=== PATIENT | female | born 1985 | race Caucasian/White ===

== ENCOUNTER 2019-05-06 07:01 | Inpatient (IN) | payer OTHER, MEDICAID ==
[~2019-05-06 07:01] MED LIST: Bupivacaine 0.25% 10 ML SDV ONE
--- NOTE | 2019-05-06 07:25 | PCM.LDHP ---
L&D History of Present Illness - General Date of Service: 05/06/19 Admit Problem/Dx: Admission Diagnosis/Problem Admission Diagnosis/Problem 05/06/19 07:04 Pat is a 33-year-old 1 para 0 white female who is admitted at 39-5/7 weeks gestational age with an CHRIS of 05/08/2019 for elective induction of labor. Risk factors include group B strep positive status and history of alpha thalassemia minor. Source of Information: Patient History Limitations: Reports: No Limitations - History of Present Illness Introduction:: Pat is a 33-year-old 1 para 0 white female who is admitted at 39-5/7 weeks gestational age with an CHRIS of 05/08/2019 for elective induction of labor. Risk factors include group B strep positive status and history of alpha thalassemia minor.Patient requesting induction prior to her due date and is scheduled for elective induction. Cervical exam on last evaluation 05/01/2019 was 2 cm, 80% effaced, soft, mid position, -3 station. I discussed with her the option of induction of labor versus continued monitoring for natural labor. She is interested in proceeding. Have talked with her about possibility of Pitocin/ artificial rupture of membranes induction. She is wishing to proceed. [employer] history: Patient is a 1 para 0 with an CHRIS of 05/08/2019 as determined by a certain laststart 08/01/2018 and supported by ultrasounds done on 10/24/2018 end 12/19/2018. Patient had menarche at age 13. Cycles every 30-33 days. Positive hCG was on 09/04/2018. She has monthly cycles and was not using any control to conception. LMP was definite starting 08/01/2018. course: Patient is group B strep positive. She has helped with thalassemia minor. Her care started with an early ultrasound done on 10/24/2018 at 12 weeks gestation. She seen on a regular basis and was a centering patient. Weight gain was from 177 pounds up to 217 pounds [place] 40 pound weight gain. Her vital signs stable throughout the care. Fundal height growth has been appropriate. Estimated weight is approximately 8 pounds. She is desiring an epidural in labor. Her CBC indices have been irregular secondary to her alpha thalassemia minor. Patient had her influenza shot on 11/26/2018. Her T dap was given on 02/27/2019. She is rubella immune. Laboratory testing and shows blood to be a positive with a negative and by screen. Hemoglobin at first visit was 11.5 g/dL and platelets are 411. She is rubella immune. RPR is nonreactive area hepatitis B surface antigen and HIV assays were both negative. Chlamydia and gonorrhea both negative. Second trimester labs showed hemoglobin 10.2 g/dL and platelets at 381,000. Her 1 hour GTT was normal at 107. Hemoglobin at 36 weeks on 04/17/2019 was 11.4 g/dL platelets were 343,000. She is group B strep positive. She develops a rash when taking penicillin. The group B strep has been cultured and is found to be sensitive to clindamycin. Allergies: 1. Penicillin which causes a rash 2. Biaxin which causes a rash Past medical history: 1. Alpha thalassemia minor Past surgical history 1. [place] teeth extraction Family history: Others alive. Has history of thalassemia, high blood pressure, multiple hip replacement surgeries, bilateral knee replacement surgeries. Father is alive and well. One brother is alive and well. Maternal grandmother is alive and well. Maternal grandfather secondary in secondary to an aneurysm in 2002. Maternal paternal grandmother is alive and well. Paternal grandfather is , cause unknown. No family history of cancer, bleeding or blood clotting problems, anesthesia related issues or -related issues. Social history: Patient is . She works in [employer] at [email or web address]. She is a college graduate. Her is Kendall Reza. They live in [place]. She does not use any significant most alcohol, drugs or tobacco. Review of systems: In general patient has no complaints. Baby has been active. Occasional contractions noted. Skin: Negative Lungs: No infectious symptoms or shortness of breath Cardiovascular: No chest pain or exercise intolerance Breasts: Changes associated with . GI: Negative : Body habitus changes related to . Musculoskeletal: Negative Neurological: Negative In general the patient is well-developed, well-nourished, pleasant female of stated age in no acute distress. On last evaluation 05/01/2019 blood pressure is 127/72. Weight was 217.4 with pre weight at 177 pounds. Height is 5 feet 4 inches. Prepregnancy BMI was 28.3. Skin is warm dry without lesions. HEENT, neck and back within normal limits. Lungs are clear with good breath sounds in all lung gardner. Cardiovascular exam shows regular and rhythm without murmurs. Breast exam is deferred Abdomen is gravid with fundal height of 40 cm. Baby in vertex presentation by Lee maneuvers. Genital exam per digital evaluation shows cervix to be 2 cm, 80% effaced, soft, mid position, -3 station. Extremities and neurological exam are grossly within normal limits. H&P Review of Systems - Review of Systems: Review Of Systems: See Below L&D Exam - Exam Exam: See Below Problem List Initiated/Reviewed/Updated: Yes Assessment/Plan Comment:: 1. 33-year-old 1 para 0 white female admitted at 39-5/7 weeks gestational age with an CHRIS of 05/08/2019 for elective induction of labor. 2. Risk factors for the include history of Alpha thalassemia minor and group B strep positive status. Patient is allergic to penicillin but group B strep has been found to be sensitive to clindamycin which will be used for B strep prophylaxis. 3. Patient desires epidural in labor and delivery 4. Patient received her T dap her flu immunization. She is rubella immune. Plan: 1. Group B strep prophylaxis with clindamycin 2. Induction of labor. Last evaluation have discussed Pitocin/artificial rupture membranes induction. She is accepting of this. 3. Epidural when necessary 4. Routine labor care 5. CBC and RPR on admission.
[2019-05-06] MEDS ORDERED: Bupivacaine/fentaNYL/NS 100 ML Bag EPIDUR PRN (07:45)
[2019-05-06] MEDS ORDERED: ePHEDrine 50 MG/ML SDV IVPUSH PRN (07:45)
[2019-05-06] MEDS ORDERED: diphenhydrAMINE 50 MG/ML SDV IVPUSH PRN (07:45)
[2019-05-06] MEDS ORDERED: fentaNYL 100 MCG/2 ML SDV EPIDUR PRN (07:45)
[2019-05-06] MEDS ORDERED: Acetaminophen 325 MG Tab PO PRN (08:08)
[2019-05-06] MEDS ORDERED: Sodium Chloride 0.9% 10 ML Syringe FLUSH PRN (08:08)
[2019-05-06] MEDS ORDERED: Oxytocin/Lactated Ringers 10 UNIT/1,000 ML BAG IV SCH ×2 (08:15)
[2019-05-06] MEDS ORDERED: Lactated Ringers 1,000 ML IV SCH (08:15)
[2019-05-06] MEDS: Lactated Ringers 1,000 ML IV SCH ×3 (08:40→15:04)
[2019-05-06] MEDS: Clindamycin Phosphate in D5W 900 MG in Premix Bag 1 BAG IV SCH ×4 (08:40→16:24)
--- NOTE | 2019-05-06 08:54 | PCM.PNLD ---
Labor Progress Note - VS & Meds Vital Signs: Last Vital Signs Temp 36.4 C 05/06/19 07:27 Pulse 95 05/06/19 07:27 Resp 16 05/06/19 07:27 BP 123/86 05/06/19 07:27 Pulse Ox 99 05/06/19 07:27 Active Medications: Current Medications Acetaminophen (Tylenol) 650 mg PO Q6H PRN PRN Reason: Pain (Mild 1-3) and fever Diphenhydramine HCl (Benadryl) 25 mg IVPUSH Q6H PRN PRN Reason: Itching Ephedrine Sulfate (Ephedrine Sulfate) 5 mg IVPUSH ASDIRECTED PRN PRN Reason: HYPOTENTSION Fentanyl (Sublimaze) 100 mcg EPIDUR Q3H PRN PRN Reason: Pain Fentanyl/Bupivacaine HCl (Fentanyl/Bupivacaine/Ns 2 Mcg-0.125% 100 Ml) 100 ml EPIDUR CONTINUOUS PRN PRN Reason: Pain Lactated Ringer's (Ringers, Lactated) 1,000 mls @ 100 mls/hr IV ASDIRECTED LICHA Lactated Ringer's (Ringers, Lactated) 1,000 mls @ 40 mls/hr IV ASDIRECTED LICHA Last Admin: 05/06/19 08:40 Dose: 40 mls/hr Oxytocin/Lactated Ringer's (Pitocin In Lr 10 Units/1,000 Ml) 10 unit in 1,000 mls @ 100 mls/hr IV .CONTINUOUS LICHA Oxytocin/Lactated Ringer's (Pitocin In Lr 10 Units/1,000 Ml) 10 unit in 1,000 mls @ 12 mls/hr IV TITRATE LICHA; Protocol Last Admin: 05/06/19 08:41 Dose: 2 munits/min, 12 mls/hr Clindamycin Phosphate 900 mg/ (Premix) 50 mls @ 94.34 mls/hr IV Q8H LICHA Last Admin: 05/06/19 08:40 Dose: 94.34 mls/hr Sodium Chloride (Saline Flush) 10 ml FLUSH ASDIRECTED PRN PRN Reason: Keep Vein Open - Uterine Contractions Uterine Monitoring Mode: External [place] Contraction Frequency (min): Irregular 12-15 min Contraction Duration (sec): 45-60 Contraction Intensity: Mild Uterine Resting Tone: Soft - Monitoring Monitor Mode: Doppler/Auscultation Heart Rate (FHR) Baseline: 130 Heart Rate (FHR) Per Doppler: 130 Heart Rate (FHR) Variability: Moderate (6-25 bmp) Accelerations: Present, 15x15 Decelerations: None Strip Review: Category I - Vaginal Exam Dilation (cm): 1 Effacement (Percent): 50 Station: -4 Cervical Position: Posterior Sterile Vaginal Exam Performed By: Venkatesh Almanza Vaginal Exam Comment: Transcervical 16 [place] Crocker bulb placed with ring forceps under direct visualization with speculum. Crocker bulb filled with 50 mL of sterile saline. Mother and infant tolerated without difficulty. - Labor Progress (Free Text) Labor Progress: Start clindamycin 900 mg IV for GBS prophylaxis Routine vitals Continuous monitoring while on pitocin Regular diet Pitocin for induction Anticipate vaginal delivery unless otherwise indicated. Venkatesh Almanza MD 8:58 AM 05/06/2019
--- NOTE | 2019-05-06 12:36 | PCM.PNLD ---
Labor Progress Note - VS & Meds Vital Signs: Last Vital Signs Temp 36.4 C 05/06/19 07:27 Pulse 95 05/06/19 07:27 Resp 16 05/06/19 07:27 BP 123/86 05/06/19 07:27 Pulse Ox 99 05/06/19 07:27 Active Medications: Current Medications Acetaminophen (Tylenol) 650 mg PO Q6H PRN PRN Reason: Pain (Mild 1-3) and fever Diphenhydramine HCl (Benadryl) 25 mg IVPUSH Q6H PRN PRN Reason: Itching Ephedrine Sulfate (Ephedrine Sulfate) 5 mg IVPUSH ASDIRECTED PRN PRN Reason: HYPOTENTSION Fentanyl (Sublimaze) 100 mcg EPIDUR Q3H PRN PRN Reason: Pain Fentanyl/Bupivacaine HCl (Fentanyl/Bupivacaine/Ns 2 Mcg-0.125% 100 Ml) 100 ml EPIDUR CONTINUOUS PRN PRN Reason: Pain Lactated Ringer's (Ringers, Lactated) 1,000 mls @ 100 mls/hr IV ASDIRECTED LICHA Lactated Ringer's (Ringers, Lactated) 1,000 mls @ 40 mls/hr IV ASDIRECTED LICHA Last Admin: 05/06/19 08:40 Dose: 40 mls/hr Oxytocin/Lactated Ringer's (Pitocin In Lr 10 Units/1,000 Ml) 10 unit in 1,000 mls @ 100 mls/hr IV .CONTINUOUS LICHA Oxytocin/Lactated Ringer's (Pitocin In Lr 10 Units/1,000 Ml) 10 unit in 1,000 mls @ 12 mls/hr IV TITRATE LICHA; Protocol Last Titration: 05/06/19 11:56 Dose: 8 munits/min, 48 mls/hr Clindamycin Phosphate 900 mg/ (Premix) 50 mls @ 94.34 mls/hr IV Q8H LICHA Last Admin: 05/06/19 08:40 Dose: 94.34 mls/hr Sodium Chloride (Saline Flush) 10 ml FLUSH ASDIRECTED PRN PRN Reason: Keep Vein Open - Uterine Contractions Uterine Monitoring Mode: External [place] Contraction Frequency (min): 2-4 Contraction Duration (sec): 60-75 Contraction Intensity: Moderate Uterine Resting Tone: Soft - Monitoring Monitor Mode: Doppler/Auscultation Heart Rate (FHR) Baseline: 125 Heart Rate (FHR) Per Doppler: 125 Heart Rate (FHR) Variability: Moderate (6-25 bmp) Accelerations: Present, 15x15 Decelerations: None Strip Review: Category I - Vaginal Exam Dilation (cm): 5 Effacement (Percent): 80 Station: -3 Cervical Position: Anterior Sterile Vaginal Exam Performed By: Venkatesh Almanza Vaginal Exam Comment: Artificial rupture membranes performed with [place] with return of clear fluid. Small amount of blood clot was present on cervical exam prior to rupture of membranes. - Labor Progress (Free Text) Labor Progress: Patient continued to progress well with Crocker bulb coming out spontaneously at approximately 10:30 AM Continue Pitocin for induction of labor Continue clindamycin 900 mg IV every 8 hours for GBS prophylaxis Routine vitals Patient may have anesthesia such as epidural as desired Continuous monitoring Small amounts of regular diet as tolerated Anticipate vaginal delivery unless otherwise indicated Venkatesh Almanza MD 12:35 PM 05/06/2019
--- NOTE | 2019-05-06 14:22 | PCM.PREANE ---
Preanesthetic Assessment - Procedure Proposed Procedure: epidural - Anesthesia/Transfusion/Family Hx Anesthesia History: Prior Anesthesia Without Reaction Family History of Anesthesia Reaction: No Transfusion History: No Prior Transfusion(s) - Review of Systems General: Fatigue Pulmonary: No Symptoms Cardiovascular: No Symptoms Gastrointestinal: Abdominal Pain (labor) Neurological: Tingling (bilateral hands) Other: Reports: None - Physical Assessment Vital Signs: Last Vital Signs Temp 36.4 C 05/06/19 07:27 Pulse 95 05/06/19 07:27 Resp 16 05/06/19 07:27 BP 123/86 05/06/19 07:27 Pulse Ox 99 05/06/19 07:27 Height: 1.63 m Weight: 98.566 kg ASA Class: 2 Mental Status: Alert & Oriented x3 Airway Class: Mallampati = 2 Dentition: Reports: Normal Dentition Thyro-Mental Finger Breadths: 3 Mouth Opening Finger Breadths: 3 ROM/Head Extension: Full Lungs: Clear to Auscultation, Normal Respiratory Effort Cardiovascular: Regular Rate, Regular Rhythm - Lab Values: Laboratory Last Values WBC 12.57 K/mm3 (3.98-10.04) H 05/06/19 08:52 RBC 4.93 M/mm3 (3.98-5.22) 05/06/19 08:52 Hgb 10.8 gm/dl (11.2-15.7) L 05/06/19 08:52 Hct 32.6 % (34.1-44.9) L 05/06/19 08:52 MCV 66.1 fl (79.4-94.8) L 05/06/19 08:52 MCH 21.9 pg (25.6-32.2) L 05/06/19 08:52 MCHC 33.1 g/dl (32.2-35.5) 05/06/19 08:52 RDW Std Deviation 36.9 fL (36.4-46.3) 05/06/19 08:52 Plt Count 281 K/mm3 (182-369) 05/06/19 08:52 MPV 11.2 fl (9.4-12.3) 05/06/19 08:52 Neut % (Auto) 72.7 % (34.0-71.1) H 05/06/19 08:52 Lymph % (Auto) 17.1 % (19.3-51.7) L 05/06/19 08:52 [place] % (Auto) 7.2 % (4.7-12.5) 05/06/19 08:52 Eos % (Auto) 1.0 (0.7-5.8) 05/06/19 08:52 Baso % (Auto) 0.4 % (0.1-1.2) 05/06/19 08:52 Neut # (Auto) 9.14 K/mm3 (1.56-6.13) H 05/06/19 08:52 Lymph # (Auto) 2.15 K/mm3 (1.18-3.74) 05/06/19 08:52 [place] # (Auto) 0.91 K/mm3 (0.24-0.36) H 05/06/19 08:52 Eos # (Auto) 0.12 K/mm3 (0.04-0.36) 05/06/19 08:52 Baso # (Auto) 0.05 K/mm3 (0.01-0.08) 05/06/19 08:52 - Allergies Allergies/Adverse Reactions: Allergies Allergy/AdvReac Type Severity Reaction Status Date / Time clarithromycin [From Biaxin] Allergy Rash Verified 05/06/19 07:28 Penicillins Allergy Rash Verified 05/06/19 07:28 - Anesthesia Plan Pre-Op Medication Ordered: None - Acknowledgements Anesthesia Type Planned: Epidural Pt an Appropriate Candidate for the Planned Anesthesia: Yes Alternatives and Risks of Anesthesia Discussed w Pt/Guardian: Yes Pt/Guardian Understands and Agrees with Anesthesia Plan: Yes PreAnesthesia Questionnaire Gastrointestinal History: Reports: GERD 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: Reports: Hematologic History: Reports: Anemia, Other (See Below) Other Hematologic History: Thalassemia - Past Surgical History HEENT Surgical History: Reports: Oral Surgery - SUBSTANCE USE Smoking Status *Q: Never Smoker Recreational Drug Use History: No - HOME MEDS Home Medications: Home Meds Cholecalciferol (Vitamin D3) [Vitamin D3] 2,000 unit PO DAILY 05/06/19 [History] Ferrous Sulfate [Iron] 325 mg PO DAILY 05/06/19 [History] No122/Iron/Folic Acid [ Multi Tablet] 1 each PO DAILY 05/06/19 [History] - CURRENT (IN HOUSE) MEDS Current Meds: Current Medications Acetaminophen (Tylenol) 650 mg PO Q6H PRN PRN Reason: Pain (Mild 1-3) and fever Diphenhydramine HCl (Benadryl) 25 mg IVPUSH Q6H PRN PRN Reason: Itching Ephedrine Sulfate (Ephedrine Sulfate) 5 mg IVPUSH ASDIRECTED PRN PRN Reason: HYPOTENTSION Fentanyl (Sublimaze) 100 mcg EPIDUR Q3H PRN PRN Reason: Pain Last Admin: 05/06/19 13:52 Dose: 100 mcg Fentanyl/Bupivacaine HCl (Fentanyl/Bupivacaine/Ns 2 Mcg-0.125% 100 Ml) 100 ml EPIDUR CONTINUOUS PRN PRN Reason: Pain Last Admin: 05/06/19 13:52 Dose: 100 ml Lactated Ringer's (Ringers, Lactated) 1,000 mls @ 100 mls/hr IV ASDIRECTED LICHA Lactated Ringer's (Ringers, Lactated) 1,000 mls @ 40 mls/hr IV ASDIRECTED LICHA Last Admin: 05/06/19 13:42 Dose: 999 mls/hr Oxytocin/Lactated Ringer's (Pitocin In Lr 10 Units/1,000 Ml) 10 unit in 1,000 mls @ 100 mls/hr IV .CONTINUOUS LICHA Oxytocin/Lactated Ringer's (Pitocin In Lr 10 Units/1,000 Ml) 10 unit in 1,000 mls @ 12 mls/hr IV TITRATE LICHA; Protocol Last Titration: 05/06/19 11:56 Dose: 8 munits/min, 48 mls/hr Clindamycin Phosphate 900 mg/ (Premix) 50 mls @ 94.34 mls/hr IV Q8H LICHA Last Admin: 05/06/19 08:40 Dose: 94.34 mls/hr Sodium Chloride (Saline Flush) 10 ml FLUSH ASDIRECTED PRN PRN Reason: Keep Vein Open
--- NOTE | 2019-05-06 20:33 | PCM.PNLD ---
Labor Progress Note - VS & Meds Vital Signs: Last Vital Signs Temp 36.4 C 05/06/19 07:27 Pulse 95 05/06/19 07:27 Resp 16 05/06/19 07:27 BP 123/86 05/06/19 07:27 Pulse Ox 99 05/06/19 07:27 Active Medications: Current Medications Acetaminophen (Tylenol) 650 mg PO Q6H PRN PRN Reason: Pain (Mild 1-3) and fever Diphenhydramine HCl (Benadryl) 25 mg IVPUSH Q6H PRN PRN Reason: Itching Ephedrine Sulfate (Ephedrine Sulfate) 5 mg IVPUSH ASDIRECTED PRN PRN Reason: HYPOTENTSION Fentanyl (Sublimaze) 100 mcg EPIDUR Q3H PRN PRN Reason: Pain Last Admin: 05/06/19 13:52 Dose: 100 mcg Fentanyl/Bupivacaine HCl (Fentanyl/Bupivacaine/Ns 2 Mcg-0.125% 100 Ml) 100 ml EPIDUR CONTINUOUS PRN PRN Reason: Pain Last Admin: 05/06/19 13:52 Dose: 100 ml Lactated Ringer's (Ringers, Lactated) 1,000 mls @ 100 mls/hr IV ASDIRECTED LICHA Lactated Ringer's (Ringers, Lactated) 1,000 mls @ 40 mls/hr IV ASDIRECTED LICHA Last Admin: 05/06/19 15:04 Dose: 40 mls/hr Oxytocin/Lactated Ringer's (Pitocin In Lr 10 Units/1,000 Ml) 10 unit in 1,000 mls @ 100 mls/hr IV .CONTINUOUS LICHA Oxytocin/Lactated Ringer's (Pitocin In Lr 10 Units/1,000 Ml) 10 unit in 1,000 mls @ 12 mls/hr IV TITRATE LICHA; Protocol Last Titration: 05/06/19 17:15 Dose: 16 munits/min, 96 mls/hr Clindamycin Phosphate 900 mg/ (Premix) 50 mls @ 94.34 mls/hr IV Q8H LICHA Last Admin: 05/06/19 16:24 Dose: 94.34 mls/hr Sodium Chloride (Saline Flush) 10 ml FLUSH ASDIRECTED PRN PRN Reason: Keep Vein Open - Uterine Contractions Uterine Monitoring Mode: External [place] Contraction Frequency (min): 2-4 Contraction Duration (sec): 45-60 Contraction Intensity: Moderate Uterine Resting Tone: Soft - Monitoring Monitor Mode: Doppler/Auscultation Heart Rate (FHR) Baseline: 140 Heart Rate (FHR) Per Doppler: 140 Heart Rate (FHR) Variability: Moderate (6-25 bmp) Accelerations: Present, 15x15 Decelerations: None Strip Review: Category I - Vaginal Exam Dilation (cm): 8 Effacement (Percent): 100 Station: -2 Cervical Position: Anterior Sterile Vaginal Exam Performed By: Venkatesh Almanza Vaginal Exam Comment: Intrauterine pressure catheter placed without difficulty after patient making slow progress. Mother and infant tolerated well. - Labor Progress (Free Text) Labor Progress: Patient with slow progress since approximately 1500 when she was 6-7 cm by nurses and is approximately 8 cm at current exam. IUPC placed to monitor contractions more closely and to adjust Pitocin for induction of labor. Continue Pitocin for induction of labor Continue clindamycin 900 mg IV every 8 hours for GBS prophylaxis Routine vitals Patient may have anesthesia such as epidural as desired Continuous monitoring Small amounts of regular diet as tolerated Anticipate vaginal delivery unless otherwise indicated Venkatesh Almanza MD 8:35 PM 05/06/2019
--- NOTE | 2019-05-07 00:27 | PCM.DEL ---
L & D Note - General Info Date of Service: 05/06/19 Mother's Due Date: 05/08/19 - Delivery Note Labor: Augmented by ARM, Induced by Oxytocin Cervical Ripening Method: Balloon Device (Crocker bulb filled with 50 mL of sterile saline, placed with speculum and ring forceps), Oxytocin Delivery Outcome: Livebirth Infant Delivery Method: Spontaneous Vaginal Delivery-Single Presentation: Right Occiput Anterior (ALICIA) Nuchal Cord: None Prep: Povidone-Iodine (Betadine Anesthesia Type: Epidural Amniotic Fluid Description: Clear Episiotomy Type: None Laceration: 3rd Degree (partial, repaired with interrupted figure of 8 sutures with 2-0 Vicryl Rapide, remainder of repair with 3-0 Vicryl) Placenta: Intact, Spontaneous Cord: 3 Vessels Estimated Blood Loss: 400 Resuscitation Needed: No : Bulb Syringe, Cathether, Stimulated, Warmed, [place] Used Provider: Venkatesh Almanza Score 1 min: 9 Score 5 min: 9 Second Stage Interventions: Reports: Pushing Effectively, Pushing, Stirrups/Leg Supports Delivery Comments (Free Text/Narrative):: Stage I: Pat Reza was admitted for elective induction of labor. On admission her cervix was dilated to 1 cm. She was GBS positive and has a history of allergy to penicillin. She was started on clindamycin for GBS prophylaxis and received a total of 2 doses prior to delivery. She was started on Pitocin for induction of labor. She had a transcervical Crocker bulb placed with ring forceps and the use of a speculum. The Crocker bulb was filled with 50 mL of sterile saline. The Crocker bulb came out spontaneously and she had artificial rupture of membranes with return of clear fluid. She was given an epidural for anesthesia. She was making slow progress throughout the evening from 6 to 8 cm and an intrauterine pressure catheter was placed without difficulty. She progressed to complete and pushing. Stage II: On 05/06/2019 she had a normal vaginal delivery of a live male infant at 23:30. Apgars of 9 & 9. Weight of 3690 g (8 lbs 2.2 oz). Length of 21.5 inches. There was no nuchal cord. Infant was delivered in ALICIA position. The cord was doubly clamped and cut by father of the . was placed on mother's abdomen. Stage III: She had a spontaneous delivery of an intact placenta in Natalia presentation. Three vessel cord. She was given pitocin and fundal massage. She had a partial third-degree laceration with the external capsule partially torn. This partial tear of the external anal sphincter muscle capsule was repaired with 2 [id number] sutures using 2-0 Vicryl Rapide. The remainder of the repair was performed in usual fashion using 3-0 Vicryl. Mom and baby were stable to recovery. EBL of 400 mL. Venkatesh Almanza MD 12:20 AM 05/07/2019 Induction Criteria - Cabrales Score Cabrales Score Dilation: 1-2 cm Cabrales Score Effacement: 60-70% Cabrales Score Infant's Station: -3 Cabrales Score Consistency: Soft Cabrales Score Cervix Position: Midposition Cabrales Score Total: 6 Cabrales Score Presenting Part: Reports: Cephalic - Induction Gestational Age >/= 39 wks: Yes Estimated Pelvis: Reports: Adequate Reassuring Monitoring Strip: Yes Absence of Tachy Systole: Yes - Augmentation Estimated Pelvis: Reports: Adequate Weight Estimated:: Reports: AGA Reassuring Monitoring Strip: Yes Absence of Tachy Systole: Yes - General Info Date of Service: 05/06/19 - Patient Data Vitals - Most Recent: Last Vital Signs Temp 36.4 C 05/06/19 07:27 Pulse 95 05/06/19 07:27 Resp 16 05/06/19 07:27 BP 123/86 05/06/19 07:27 Pulse Ox 99 05/06/19 07:27 Weight - Most Recent: 98.566 kg I&O - Last 24 Hours: Intake & Output 05/06/19 05/06/19 05/07/19 14:59 22:59 06:59 Intake Total 2100 Balance 2100 Lab Results Last 24 Hours: Laboratory Results - last 24 hr 05/06/19 05/06/19 Range/Units 08:52 08:52 WBC 12.57 H (3.98-10.04) K/mm3 RBC 4.93 (3.98-5.22) M/mm3 Hgb 10.8 L (11.2-15.7) gm/dl Hct 32.6 L (34.1-44.9) % MCV 66.1 L (79.4-94.8) fl MCH 21.9 L (25.6-32.2) pg MCHC 33.1 (32.2-35.5) g/dl RDW Std Deviation 36.9 (36.4-46.3) fL Plt Count 281 (182-369) K/mm3 MPV 11.2 (9.4-12.3) fl Neut % (Auto) 72.7 H (34.0-71.1) % Lymph % (Auto) 17.1 L (19.3-51.7) % [place] % (Auto) 7.2 (4.7-12.5) % Eos % (Auto) 1.0 (0.7-5.8) Baso % (Auto) 0.4 (0.1-1.2) % Neut # (Auto) 9.14 H (1.56-6.13) K/mm3 Lymph # (Auto) 2.15 (1.18-3.74) K/mm3 [place] # (Auto) 0.91 H (0.24-0.36) K/mm3 Eos # (Auto) 0.12 (0.04-0.36) K/mm3 Baso # (Auto) 0.05 (0.01-0.08) K/mm3 RPR Non-reactive (NONREACTIVE) Med Orders - Current: Current Medications Acetaminophen (Tylenol) 650 mg PO Q6H PRN PRN Reason: Pain (Mild 1-3) and fever Diphenhydramine HCl (Benadryl) 25 mg IVPUSH Q6H PRN PRN Reason: Itching Ephedrine Sulfate (Ephedrine Sulfate) 5 mg IVPUSH ASDIRECTED PRN PRN Reason: HYPOTENTSION Fentanyl (Sublimaze) 100 mcg EPIDUR Q3H PRN PRN Reason: Pain Last Admin: 05/06/19 13:52 Dose: 100 mcg Fentanyl/Bupivacaine HCl (Fentanyl/Bupivacaine/Ns 2 Mcg-0.125% 100 Ml) 100 ml EPIDUR CONTINUOUS PRN PRN Reason: Pain Last Admin: 05/06/19 13:52 Dose: 100 ml Lactated Ringer's (Ringers, Lactated) 1,000 mls @ 100 mls/hr IV ASDIRECTED LICHA Last Admin: 05/06/19 21:48 Dose: 100 mls/hr Lactated Ringer's (Ringers, Lactated) 1,000 mls @ 40 mls/hr IV ASDIRECTED LICHA Last Admin: 05/06/19 15:04 Dose: 40 mls/hr Oxytocin/Lactated Ringer's (Pitocin In Lr 10 Units/1,000 Ml) 10 unit in 1,000 mls @ 100 mls/hr IV .CONTINUOUS LICHA Oxytocin/Lactated Ringer's (Pitocin In Lr 10 Units/1,000 Ml) 10 unit in 1,000 mls @ 12 mls/hr IV TITRATE LICHA; Protocol Last Titration: 05/06/19 22:06 Dose: 20 munits/min, 120 mls/hr Clindamycin Phosphate 900 mg/ (Premix) 50 mls @ 94.34 mls/hr IV Q8H LICHA Last Admin: 05/06/19 16:24 Dose: 94.34 mls/hr Sodium Chloride (Saline Flush) 10 ml FLUSH ASDIRECTED PRN PRN Reason: Keep Vein Open - Problem List & Annotations (1) 39 weeks gestation of SNOMED Code(s): 89035869 Code(s): Z3A.39 - 39 WEEKS GESTATION OF Status: Acute Current Visit: Yes (2) GBS (group B Streptococcus carrier), +RV culture, currently SNOMED Code(s): 4472945794562, 995596014, 1339775069033 Code(s): O99.820 - STREPTOCOCCUS B CARRIER STATE COMPLICATING Status: Acute Current Visit: Yes (3) Penicillin allergy SNOMED Code(s): 48740868 Code(s): Z88.0 - ALLERGY STATUS TO PENICILLIN Status: Acute Current Visit : Yes (4) Alpha thalassemia minor trait SNOMED Code(s): 349772771 Code(s): D56.3 - THALASSEMIA MINOR Status: Acute Current Visit: Yes (5) Vaginal delivery SNOMED Code(s): 602519375 Code(s): O80 - ENCOUNTER FOR FULL-TERM UNCOMPLICATED DELIVERY Status: Acute Current Visit: Yes (6) Third degree perineal laceration during delivery SNOMED Code(s): 10985685, 768331172 Code(s): O70.20 - THIRD DEGREE PERINEAL LACERATION DURING DELIVERY, UNSP Status: Acute Current Visit: Yes - Problem List Review Problem List Initiated/Reviewed/Updated: Yes - My Orders Last 24 Hours: My Active Orders 05/06/19 08:08 Patient Status [ADT] Routine Activity as Tolerated [RC] PFP Communication Order [RC] ASDIRECTED Communication Order [RC] ASDIRECTED Communication Order [RC] ASDIRECTED Communication Order [RC] ASDIRECTED Notify Provider [RC] ASDIRECTED Notify Provider [RC] PFP Notify Provider [RC] PRN Peripheral IV Care [RC] . DIRECTED Acetaminophen [Tylenol] 650 mg PO Q6H PRN Sodium Chloride 0.9% [Saline Flush] 10 ml FLUSH ASDIRECTED PRN Electronic Heart Tones Ext w TOCO [WOMSER] Routine Electronic Heart Tones Internal [WOMSER] Per Unit Routine Peripheral IV Insertion Adult [OM.PC] Routine Resuscitation Status Routine 05/06/19 08:09 Pump Management, Intrathecal [RC] ASDIRECTED 05/06/19 08:10 Notify Provider Vital Signs [RC] PRN 05/06/19 08:11 Notify Provider [RC] ASDIRECTED 05/06/19 08:15 Clindamycin Phosphate in D5W [Cleocin in D5W] 900 mg Premix Bag 1 bag IV Q8H Lactated Ringers [Ringers, Lactated] 1,000 ml IV ASDIRECTED Lactated Ringers [Ringers, Lactated] 1,000 ml IV ASDIRECTED Oxytocin/Lactated Ringers [Pitocin in LR 10 Units/1,000 ML] 10 unit in 1,000 ml IV .CONTINUOUS Oxytocin/Lactated Ringers [Pitocin in LR 10 Units/1,000 ML] 10 unit in 1,000 ml IV TITRATE 05/06/19 Breakfast Regular Diet [DIET] 05/07/19 00:10 Patient Status Manage Transfer [TRANSFER] Routine - Plan Plan:: Admit to inpatient following normal spontaneous vaginal delivery Continue Pitocin per unit protocol following delivery of placenta and lactated Ringer's until tolerating regular diet Regular diet Vitals per unit routine Ibuprofen and Tylenol for pain control Assist with breast-feeding as needed Continue to monitor lochia Colace for prevention of constipation due to partial third-degree laceration. Patient should ensure that she has soft stools. Patient may need milk of magnesia for bowel movements as needed. Anticipate discharge home on day #2 Venkatesh Almanza MD 12:20 AM 05/07/2019
[2019-05-07] MEDS ORDERED: Acetaminophen 325 MG Tab PO PRN (01:14)
[2019-05-07] MEDS ORDERED: Magnesium Hydroxide 400 MG/5 ML Susp 30 ML Cup PO PRN (01:14)
[2019-05-07] MEDS ORDERED: Oxytocin/Lactated Ringers 10 UNIT/1,000 ML BAG IV SCH (01:14)
[2019-05-07] MEDS ORDERED: Witch Hazel Medicated Pads 40/Jar TOP PRN (01:14)
[2019-05-07] MEDS ORDERED: Benzocaine/Menthol 20%-0.5% Spray 56 GM Canister TOP PRN (01:14)
[2019-05-07] MEDS ORDERED: Hydrocortisone Acetate 25 MG Supp RECTAL PRN (01:14)
--- NOTE | 2019-05-07 08:11 | PCM48HPAN ---
Post Anesthesia Note - EVALUATION WITHIN 48HRS OF ANESTHETIC Vital Signs in Normal Range: Yes Patient Participated in Evaluation: Yes Respiratory Function Stable: Yes Airway Patent: Yes Cardiovascular Function Stable: Yes Hydration Status Stable: Yes Pain Control Satisfactory: Yes Nausea and Vomiting Control Satisfactory: Yes Mental Status Recovered: Yes (no complaints) Vital Signs: Last Vital Signs Temp 97.6 F 05/06/19 07:27 Pulse 95 05/06/19 07:27 Resp 16 05/06/19 07:27 BP 123/86 05/06/19 07:27 Pulse Ox 99 05/06/19 07:27
[2019-05-07] MEDS: Clindamycin Phosphate in D5W 900 MG in Premix Bag 1 BAG IV SCH ×2 (08:43)
--- NOTE | 2019-05-07 08:44 | PCM.SN ---
- Free Text/Narrative Note: Post Progress Note PPD #1 Subjective: Doing well overall. Ambulating without difficulty this morning. Reports that she did have one episode of lightheadedness last evening when she first went into the restroom. Lochia minimal and changing a pad about every 3 hours at this time. Voiding without difficulty this morning. Reports that she had some urinary retention last evening shortly after delivery. Tolerating regular diet without nausea or vomiting. Pain controlled with oral medications. Breast- feeding with minimal difficulty. Objective: Vitals: Physical Exam General: Alert and oriented, no acute distress Lungs: Clear to auscultation bilaterally Heart: Regular rate and rhythm Abdomen: Soft, minimal appropriate tenderness, non-distended, fundus midline, nontender, and at the umbilicus Extremities: 1+ edema in bilateral lower extremities to knees ASSESSMENT: 33-year-old female -0-0-1 s/p normal vaginal delivery PPD #1, complicated by partial third-degree perineal laceration, GBS positive with penicillin allergy and alpha thalassemia trait PLAN: Doing well Breast-feeding with minimal difficulty. Assist as needed Lochia minimal. Continue to monitor for appropriate lochia. Continue routine care Continue bowel regimen to reduce chances for constipation. Patient to receive Colace 100 mg twice daily scheduled and may also use milk of magnesia 30 mL as needed for constipation. We will recheck a CBC this morning due to her episode of lightheadedness last evening Anticipate discharge home tomorrow Venkatesh Almanza MD 8:34 AM 05/07/2019
[2019-05-07] MEDS ORDERED: Prenatal Multivitamin with Calcium/Folic Acid/Iron Tab PO SCH (09:00)
[2019-05-07] MEDS: Ibuprofen 600 MG Tab PO PRN (20:52)
[2019-05-07] MEDS: Docusate Sodium 100 MG Cap PO SCH (20:52)
[2019-05-08] MEDS: Ibuprofen 600 MG Tab PO PRN (03:30)
[2019-05-08] MEDS: Docusate Sodium 100 MG Cap PO SCH (03:53)
--- NOTE | 2019-05-08 09:10 | PCM.SN ---
- Free Text/Narrative Note: Post Progress Note PPD #2 Subjective: Doing well overall. Ambulating without difficulty. Lochia minimal and decreasing. Voiding without difficulty. Passing flatus but has not had a bowel movement. Has not had strong urge to pass a bowel movement. Tolerating regular diet without nausea or vomiting. Pain controlled with oral medications. Breast-feeding with minimal difficulty. Objective: Vitals: Vital Signs - 24 hr 05/07/19 05/07/19 05/08/19 14:34 20:56 03:26 Temperature 36.4 C 36.2 C 36.8 C Pulse, 108 H 97 78 Peripheral Respiratory 14 16 16 Rate Blood Pressure 127/80 123/72 120/75 O2 Sat by Pulse 97 97 98 Oximetry 05/08/19 07:35 Temperature 36.3 C Pulse, 78 Peripheral Respiratory 20 Rate Blood Pressure 105/58 L O2 Sat by Pulse 99 Oximetry Physical Exam General: Alert and oriented, no acute distress Lungs: Clear to auscultation bilaterally Heart: Regular rate and rhythm Abdomen: Soft, minimal appropriate tenderness, non-distended, fundus midline, nontender, and at the umbilicus Extremities: 1+ edema in bilateral lower extremities to midshins Laboratory Results - last 24 hr 05/07/19 Range/Units 09:31 WBC 23.64 H (3.98-10.04) K/mm3 RBC 4.26 (3.98-5.22) M/mm3 Hgb 9.3 L D (11.2-15.7) gm/dl Hct 28.4 L (34.1-44.9) % MCV 66.7 L (79.4-94.8) fl MCH 21.8 L (25.6-32.2) pg MCHC 32.7 (32.2-35.5) g/dl RDW Std Deviation 36.5 (36.4-46.3) fL Plt Count 295 (182-369) K/mm3 MPV 12.0 (9.4-12.3) fl Neut % (Auto) 83.2 H (34.0-71.1) % Lymph % (Auto) 9.4 L (19.3-51.7) % [place] % (Auto) 6.5 (4.7-12.5) % Eos % (Auto) 0.2 L (0.7-5.8) Baso % (Auto) 0.1 (0.1-1.2) % Neut # (Auto) 19.66 H (1.56-6.13) K/mm3 Lymph # (Auto) 2.23 (1.18-3.74) K/mm3 [place] # (Auto) 1.53 H (0.24-0.36) K/mm3 Eos # (Auto) 0.05 (0.04-0.36) K/mm3 Baso # (Auto) 0.02 (0.01-0.08) K/mm3 Manual Slide Review Abnormal smear ASSESSMENT: 33-year-old female -0-0-1 s/p normal vaginal delivery PPD #2, complicated by partial third-degree perineal laceration, GBS positive with penicillin allergy and alpha thalassemia trait PLAN: Doing well Breast-feeding with minimal difficulty. Assist as needed Lochia minimal. Continue to monitor for appropriate lochia. Continue routine care Continue bowel regimen to reduce chances for constipation. Patient to receive Colace 100 mg twice daily scheduled and may also use milk of magnesia 30 mL as needed for constipation. Discharge home today Venkatesh Almanza MD 9:08 AM 05/08/2019
--- NOTE | 2019-05-08 09:15 | PCM.DCSUM1 ---
Discharge Summary - Hospital Course Free Text/Narrative:: - General Info Date of Service: 05/06/19 Mother's Due Date: 05/08/19 - Delivery Note Labor: Augmented by ARM, Induced by Oxytocin Cervical Ripening Method: Balloon Device (Crocker bulb filled with 50 mL of sterile saline, placed with speculum and ring forceps), Oxytocin Delivery Outcome: Livebirth Infant Delivery Method: Spontaneous Vaginal Delivery-Single Presentation: Right Occiput Anterior (ALICIA) Nuchal Cord: None Prep: Povidone-Iodine (Betadine Anesthesia Type: Epidural Amniotic Fluid Description: Clear Episiotomy Type: None Laceration: 3rd Degree (partial, repaired with interrupted figure of 8 sutures with 2-0 Vicryl Rapide, remainder of repair with 3-0 Vicryl) Placenta: Intact, Spontaneous Cord: 3 Vessels Estimated Blood Loss: 400 Resuscitation Needed: No [place]: Bulb Syringe, Cathether, Stimulated, Warmed, [employer] [place] Used Provider: Venkatesh Almanza Score 1 min: 9 Score 5 min: 9 Second Stage Interventions: Reports: Pushing Effectively, Pushing, Stirrups/Leg Supports Delivery Comments (Free Text/Narrative):: Stage I: Pat Reza was admitted for elective induction of labor. On admission her cervix was dilated to 1 cm. She was GBS positive and has a history of allergy to penicillin. She was started on clindamycin for GBS prophylaxis and received a total of 2 doses prior to delivery. She was started on Pitocin for induction of labor. She had a transcervical Crocker bulb placed with ring forceps and the use of a speculum. The Crocker bulb was filled with 50 mL of sterile saline. The Crocker bulb came out spontaneously and she had artificial rupture of membranes with return of clear fluid. She was given an epidural for anesthesia. She was making slow progress throughout the evening from 6 to 8 cm and an intrauterine pressure catheter was placed without difficulty. She progressed to complete and pushing. Stage II: On 05/06/2019 she had a normal vaginal delivery of a live male infant at 23:30. Apgars of 9 & 9. Weight of 3690 g (8 lbs 2.2 oz). Length of 21.5 inches. There was no nuchal cord. was delivered in ALICIA position. The cord was doubly clamped and cut by father of the infant. Infant was placed on mother's abdomen. Stage III: She had a spontaneous delivery of an intact placenta in [place]ia presentation. Three vessel cord. She was given pitocin and fundal massage. She had a partial third-degree laceration with the external capsule partially torn. This partial tear of the external anal sphincter muscle capsule was repaired with 2 [id number] sutures using 2-0 Vicryl Rapide. The remainder of the repair was performed in usual fashion using 3-0 Vicryl. Mom and baby were stable to recovery. EBL of 400 mL. HPI Initial Comments: - General Info Date of Service: 05/06/19 Mother's Due Date: 05/08/19 - Delivery Note Labor: Augmented by ARM, Induced by Oxytocin Cervical Ripening Method: Balloon Device (Crocker bulb filled with 50 mL of sterile saline, placed with speculum and ring forceps), Oxytocin Delivery Outcome: Livebirth Delivery Method: Spontaneous Vaginal Delivery-Single Presentation: Right Occiput Anterior (ALICIA) Nuchal Cord: None Prep: Povidone-Iodine (Betadine Anesthesia Type: Epidural Amniotic Fluid Description: Clear Episiotomy Type: None Laceration: 3rd Degree (partial, repaired with interrupted figure of 8 sutures with 2-0 Vicryl Rapide, remainder of repair with 3-0 Vicryl) Placenta: Intact, Spontaneous Cord: 3 Vessels Estimated Blood Loss: 400 Resuscitation Needed: No : Bulb Syringe, Cathether, Stimulated, Warmed, [employer] [place] Used Provider: Venkatesh Almanza Score 1 min: 9 Score 5 min: 9 Second Stage Interventions: Reports: Pushing Effectively, Pushing, Stirrups/Leg Supports Delivery Comments (Free Text/Narrative):: Stage I: Pat Reza was admitted for elective induction of labor. On admission her cervix was dilated to 1 cm. She was GBS positive and has a history of allergy to penicillin. She was started on clindamycin for GBS prophylaxis and received a total of 2 doses prior to delivery. She was started on Pitocin for induction of labor. She had a transcervical Crocker bulb placed with ring forceps and the use of a speculum. The Crocker bulb was filled with 50 mL of sterile saline. The Crocker bulb came out spontaneously and she had artificial rupture of membranes with return of clear fluid. She was given an epidural for anesthesia. She was making slow progress throughout the evening from 6 to 8 cm and an intrauterine pressure catheter was placed without difficulty. She progressed to complete and pushing. Stage II: On 05/06/2019 she had a normal vaginal delivery of a live male infant at 23:30. Apgars of 9 & 9. Weight of 3690 g (8 lbs 2.2 oz). Length of 21.5 inches. There was no nuchal cord. was delivered in ALICIA position. The cord was doubly clamped and cut by father of the infant. Infant was placed on mother's abdomen. Stage III: She had a spontaneous delivery of an intact placenta in [place] presentation. Three vessel cord. She was given pitocin and fundal massage. She had a partial third-degree laceration with the external capsule partially torn. This partial tear of the external anal sphincter muscle capsule was repaired with 2 [id number] sutures using 2-0 Vicryl Rapide. The remainder of the repair was performed in usual fashion using 3-0 Vicryl. Mom and baby were stable to recovery. EBL of 400 mL. Brief History: - General Info. Date of Service: 05/06/19. Mother's Due Date: 05/08/19. - Delivery Note. Labor: Augmented by ARM, Induced by Oxytocin. Cervical Ripening Method: Balloon Device (Crocker bulb filled with 50 mL of sterile saline, placed with speculum and ring forceps), Oxytocin. Delivery Outcome: Livebirth. Infant Delivery Method: Spontaneous Vaginal Delivery- Single. Presentation: Right Occiput Anterior (ALICIA). Nuchal Cord: None. Prep: Povidone-Iodine (Betadine. Anesthesia Type: Epidural. Amniotic Fluid Description: Clear. Episiotomy Type: None. Laceration: 3rd Degree (partial, repaired with interrupted figure of 8 sutures with 2-0 Vicryl Rapide, remainder of repair with 3-0 Vicryl). Placenta: Intact, Spontaneous. Cord: 3 Vessels. Estimated Blood Loss: 400. Resuscitation Needed: No. [place]: Bulb Syringe, Cathether, Stimulated, Warmed, [employer] [place] Used. Provider: Venkatesh Almanza. Score 1 min: 9. Score 5 min: 9. Second Stage Interventions: Reports: Pushing Effectively, Pushing, Stirrups/Leg Supports. Delivery Comments (Free Text/Narrative):: Stage I: Pat Reza was admitted for elective induction of labor. On admission her cervix was dilated to 1 cm. She was GBS positive and has a history of allergy to penicillin. She was started on clindamycin for GBS prophylaxis and received a total of 2 doses prior to delivery. She was started on Pitocin for induction of labor. She had a transcervical Crocker bulb placed with ring forceps and the use of a speculum. The Crocker bulb was filled with 50 mL of sterile saline. The Crocker bulb came out spontaneously and she had artificial rupture of membranes with return of clear fluid. She was given an epidural for anesthesia. She was making slow progress throughout the evening from 6 to 8 cm and an intrauterine pressure catheter was placed without difficulty. She progressed to complete and pushing. Stage II: On 05/06/2019 she had a normal vaginal delivery of a live male at 23:30. Apgars of 9 & 9. Weight of 3690 g (8 lbs 2.2 oz). Length of 21.5 inches. There was no nuchal cord. was delivered in ALICIA position. The cord was doubly clamped and cut by father of the . Infant was placed on mother's abdomen. Stage III: She had a spontaneous delivery of an intact placenta in [place] presentation. Three vessel cord. She was given pitocin and fundal massage. She had a partial third-degree laceration with the external capsule partially torn. This partial tear of the external anal sphincter muscle capsule was repaired with 2 [id number] sutures using 2-0 Vicryl Rapide. The remainder of the repair was performed in usual fashion using 3-0 Vicryl. Mom and baby were stable to recovery. EBL of 400 mL. Diagnosis: Stroke: No - Discharge Data Discharge Date: 05/08/19 Discharge Disposition: Home, Self-Care 01 Condition: Good - Referral to Home Health Primary Care Physician: Venkatesh Almanza MD - Discharge Diagnosis/Problem(s) (1) 39 weeks gestation of SNOMED Code(s): 87059074 ICD Code: Z3A.39 - 39 WEEKS GESTATION OF Status: Acute Current Visit: Yes (2) GBS (group B Streptococcus carrier), +RV culture, currently SNOMED Code(s): 7797378071740, 347482207, 3854305056808 ICD Code: O99.820 - STREPTOCOCCUS B CARRIER STATE COMPLICATING Status: Acute Current Visit: Yes (3) Penicillin allergy SNOMED Code(s): 24348170 ICD Code: Z88.0 - ALLERGY STATUS TO PENICILLIN Status: Acute Current Visit: Yes (4) Alpha thalassemia minor trait SNOMED Code(s): 571207660 ICD Code: D56.3 - THALASSEMIA MINOR Status: Acute Current Visit: Yes (5) Vaginal delivery SNOMED Code(s): 211582658 ICD Code: O80 - ENCOUNTER FOR FULL-TERM UNCOMPLICATED DELIVERY Status: Acute Current Visit: Yes (6) Third degree perineal laceration during delivery SNOMED Code(s): 43100147, 613433542 ICD Code: O70.20 - THIRD DEGREE PERINEAL LACERATION DURING DELIVERY, UNSP Status: Acute Current Visit: Yes - Patient Summary/Data Complications: Partial third-degree laceration during delivery Consults: None Hospital Course: Pat Reza was admitted for elective induction of labor. On admission her cervix was dilated to 1 cm. She was GBS positive and has a history of allergies to penicillin. She was started on clindamycin for GBS prophylaxis and received a total of 2 doses prior to delivery. She was given pitocin for induction of labor. She had transcervical Crocker bulb placed with ring forceps and use of a speculum. The Crocker bulb was filled with 50 mL of sterile saline. The Crocker bulb came out spontaneously and she had artificial rupture membranes with return of clear fluid.. She was given an epidural for anesthesia. She had an intrauterine pressure catheter placed without difficulty. She progressed to complete and began pushing. On 05/06/2019 she had a normal vaginal delivery of a live male infant at 23:30. Apgars of 9 and 9. Weight of 3690 g (8 pounds 2.2 ounces). Her delivery was complicated by a partial third-degree laceration. Her course was uneventful. Her pain was well controlled and she had minimal lochia. She was ambulating, tolerating a regular diet and voiding normally. She was passing flatus but has not had a bowel movement prior to discharge. She did not feel strong urge for a bowel movement prior to discharge. She was breast-feeding with minimal difficulty. She was afebrile and her hematocrit was 28.4 on day #1. She desired to be discharged home on the morning of PPD #2. Her blood type is A+. - Patient Instructions Diet: Regular Diet as Tolerated Activity: Apply Ice, As Tolerated Activity, Other: Nothing in the vagina for 6 weeks Driving: May Drive Today Showering/Bathing: May Shower Notify Provider of: Fever, Increased Pain, Swelling and Redness, Drainage, Nausea and/or Vomiting Other/Special Instructions: Please contact your physician's office if you have heavy vaginal bleeding enough to soak a pad in less than an hour for several hours. Monitor for any signs of an infection in the breasts with severe pain or redness of the breast. Try to reduce the amount of straining with bowel movements and ensure that you have soft bowel movements. The stool should be the consistency of toothpaste when you have a bowel movement. Recommend for you to use Colace 100 mg twice daily with a large glass of water with each tablet and to add milk of magnesia 1 capful 1-2 times daily if having mild constipation. If having significant constipation then would recommend for you to contact our office for further instructions. - Discharge Plan *PRESCRIPTION DRUG MONITORING PROGRAM REVIEWED*: Not Applicable *COPY OF PRESCRIPTION DRUG MONITORING REPORT IN PATIENT [facility]: Not Applicable Home Medications: Home Meds Cholecalciferol (Vitamin D3) [Vitamin D3] 2,000 unit PO DAILY 05/06/19 [History] Ferrous Sulfate [Iron] 325 mg PO DAILY 05/06/19 [History] No122/Iron/Folic Acid [ Multi Tablet] 1 each PO DAILY 05/06/19 [History] Acetaminophen [Tylenol] 650 mg PO Q6H PRN tablet 05/08/19 [Rx] Benzocaine/Menthol [Dermoplast Pain Relief [place]] 1 spray TOP ASDIRECTED PRN canister 05/08/19 [Rx] Docusate Sodium [Colace] 100 mg PO BID cap 05/08/19 [Rx] Hydrocortisone Acetate [Anucort-HC] 25 mg RECTAL BID PRN supp 05/08/19 [Rx] Ibuprofen [Motrin] 600 mg PO Q6H PRN tablet 05/08/19 [Rx] Magnesium Hydroxide [Milk of Magnesia] 30 ml PO BEDTIME PRN cup 05/08/19 [Rx] witch Marycruz [Tucks] 1 pad TOP ASDIRECTED PRN pad 05/08/19 [Rx] Patient Handouts: Care of a Perineal Tear, Care After Vaginal Delivery Referrals: Bro Paulino MD [Physician] - (Follow-up in 2 to 3 weeks for routine visit or earlier as needed.) - Discharge Summary/Plan Comment DC Time >30 min.: No - Patient Data Vitals - Most Recent: Last Vital Signs Temp 36.3 C 05/08/19 07:35 Pulse 78 05/08/19 07:35 Resp 20 05/08/19 07:35 BP 105/58 L 05/08/19 07:35 Pulse Ox 99 05/08/19 07:35 Weight - Most Recent: 98.566 kg I&O - Last 24 hours: Intake & Output 05/07/19 05/08/19 05/08/19 22:59 06:59 14:59 Intake Total 320 Balance 320 Lab Results - Last 24 hrs: Laboratory Results - last 24 hr 05/07/19 Range/Units 09:31 WBC 23.64 H (3.98-10.04) K/mm3 RBC 4.26 (3.98-5.22) M/mm3 Hgb 9.3 L D (11.2-15.7) gm/dl Hct 28.4 L (34.1-44.9) % MCV 66.7 L (79.4-94.8) fl MCH 21.8 L (25.6-32.2) pg MCHC 32.7 (32.2-35.5) g/dl RDW Std Deviation 36.5 (36.4-46.3) fL Plt Count 295 (182-369) K/mm3 MPV 12.0 (9.4-12.3) fl Neut % (Auto) 83.2 H (34.0-71.1) % Lymph % (Auto) 9.4 L (19.3-51.7) % [place] % (Auto) 6.5 (4.7-12.5) % Eos % (Auto) 0.2 L (0.7-5.8) Baso % (Auto) 0.1 (0.1-1.2) % Neut # (Auto) 19.66 H (1.56-6.13) K/mm3 Lymph # (Auto) 2.23 (1.18-3.74) K/mm3 [place] # (Auto) 1.53 H (0.24-0.36) K/mm3 Eos # (Auto) 0.05 (0.04-0.36) K/mm3 Baso # (Auto) 0.02 (0.01-0.08) K/mm3 Manual Slide Review Abnormal smear Med Orders - Current: Current Medications Acetaminophen (Tylenol) 650 mg PO Q6H PRN PRN Reason: mild pain or fever Benzocaine/Menthol (Dermoplast Pain Relief [place]) 0 gm TOP ASDIRECTED PRN PRN Reason: Perineal Comfort Measure Last Admin: 05/07/19 01:39 Dose: 1 can Docusate Sodium (Colace) 100 mg PO BID LICHA Last Admin: 05/08/19 03:53 Dose: Not Given Hydrocortisone Acetate (Anucort-Hc) 25 mg RECTAL BID PRN PRN Reason: Hemorrhoid pain Oxytocin/Lactated Ringer's (Pitocin In Lr 10 Units/1,000 Ml) 10 unit in 1,000 mls @ 100 mls/hr IV TITRATE LICHA; Protocol Ibuprofen (Motrin) 600 mg PO Q6H PRN PRN Reason: Mild pain or fever Last Admin: 05/08/19 03:30 Dose: 600 mg Magnesium Hydroxide (Milk Of Magnesia) 30 ml PO BEDTIME PRN PRN Reason: Constipation Prenat Multivit/[place]/Iron/Folic Ac ( Plus Iron) 1 each PO DAILY LICHA Last Admin: 05/07/19 18:29 Dose: Not Given Witch Marycruz (Tucks) 1 pad TOP ASDIRECTED PRN PRN Reason: Perineal Comfort Measure Last Admin: 05/07/19 01:39 Dose: 1 tub Discontinued Medications Acetaminophen (Tylenol) 650 mg PO Q6H PRN PRN Reason: Pain (Mild 1-3) and fever Bupivacaine HCl (Sensorcaine-Mpf 0.25%) 10 ml .ROUTE .STK-MED ONE Stop: 05/06/19 00:01 Diphenhydramine HCl (Benadryl) 25 mg IVPUSH Q6H PRN PRN Reason: Itching Ephedrine Sulfate (Ephedrine Sulfate) 5 mg IVPUSH ASDIRECTED PRN PRN Reason: HYPOTENTSION Fentanyl (Sublimaze) 100 mcg EPIDUR Q3H PRN PRN Reason: Pain Last Admin: 05/06/19 13:52 Dose: 100 mcg Fentanyl/Bupivacaine HCl (Fentanyl/Bupivacaine/Ns 2 Mcg-0.125% 100 Ml) 100 ml EPIDUR CONTINUOUS PRN PRN Reason: Pain Last Admin: 05/06/19 13:52 Dose: 100 ml Lactated Ringer's (Ringers, Lactated) 1,000 mls @ 100 mls/hr IV ASDIRECTED LICHA Last Admin: 05/06/19 21:48 Dose: 100 mls/hr Lactated Ringer's (Ringers, Lactated) 1,000 mls @ 40 mls/hr IV ASDIRECTED LICHA Last Admin: 05/06/19 15:04 Dose: 40 mls/hr Oxytocin/Lactated Ringer's (Pitocin In Lr 10 Units/1,000 Ml) 10 unit in 1,000 mls @ 100 mls/hr IV .CONTINUOUS LICHA Last Admin: 05/06/19 23:30 Dose: 999 mls/hr Oxytocin/Lactated Ringer's (Pitocin In Lr 10 Units/1,000 Ml) 10 unit in 1,000 mls @ 12 mls/hr IV TITRATE LICHA; Protocol Last Titration: 05/06/19 22:06 Dose: 20 munits/min, 120 mls/hr Clindamycin Phosphate 900 mg/ (Premix) 50 mls @ 94.34 mls/hr IV Q8H LICHA Last Admin: 05/07/19 08:43 Dose: Not Given Sodium Chloride (Saline Flush) 10 ml FLUSH ASDIRECTED PRN PRN Reason: Keep Vein Open
== END 2019-05-08 12:25 | disposition home or self-care (01) | DRG 768 ==
LOC: JD.OB 07:16 → OBSVTOIN 23:30 → JD.OB 23:30
PROVIDERS: ADMIT Obstetrics & Gynecology; ATTEND Obstetrics & Gynecology
PROC: 10E0XZZ Delivery of Products of Conception, External Approach (ICD-10-PCS; principal; 2019-05-06)
PROC: 0DQR0ZZ Repair Anal Sphincter, Open Approach (ICD-10-PCS; 2019-05-06)
PROC: 10907ZC Drainage of Amniotic Fluid, Therapeutic from Products of Conception, Via Natural or Artificial Opening (ICD-10-PCS; 2019-05-06)
PROC: 3E033VJ Introduction of Other Hormone into Peripheral Vein, Percutaneous Approach (ICD-10-PCS; 2019-05-06)
PROC: 0U7C7ZZ Dilation of Cervix, Via Natural or Artificial Opening (ICD-10-PCS; 2019-05-06)
PROC: 3E0R3BZ Introduction of Anesthetic Agent into Spinal Canal, Percutaneous Approach (ICD-10-PCS; 2019-05-06)
PROC: 10H07YZ Insertion of Other Device into Products of Conception, Via Natural or Artificial Opening (ICD-10-PCS; 2019-05-06)
DX: O99.824 Streptococcus B carrier state complicating childbirth (principal); Z37.0 Single live birth; O70.20 Third degree perineal laceration during delivery, unspecified; D56.3 Thalassemia minor; O99.12 Other diseases of the blood and blood-forming organs and certain disorders involving the immune mechanism complicating childbirth; K59.00 Constipation, unspecified; O99.62 Diseases of the digestive system complicating childbirth; Z88.1 Allergy status to other antibiotic agents; Z3A.39 39 weeks gestation of pregnancy; Z88.0 Allergy status to penicillin; Z88.8 Allergy status to other drugs, medicaments and biological substances
CPT/HCPCS: 01967; 36415; 51701; 51702; 59025; 59409; 85025; 86592; A9270-GY; J2590; J3010; J3490; J7120